=== PATIENT | female | born 1960 | race Caucasian/White ===

== ENCOUNTER 2024-07-04 16:14 | Emergency (ER) | payer BC ==
[~2024-07-04] VITALS: Ht 165.1 cm; Wt 73.3 kg
[~2024-07-04 16:14] MED LIST: ALBU8HFA PO; CALC-212 PO; GLUC100017 PO; MULT-620 PO; OMEG1CAP2 PO
--- NOTE | 2024-07-04 16:30 | ELECTROCARDIOGRAPH REPORT ---
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 Renita Hednerson Measurements Intervals [place] Rate: 69 P: 15 [place]: 170 QRS: 2 QRSD: 108 T: -7 QT: 405 QTc: 434 Interpretive Statements Sinus rhythm Probable left atrial enlargement Abnormal R-wave progression, early transition Borderline T abnormalities, diffuse leads Baseline wander in lead(s) I,II,aVR Electronically Signed On 07-04-2024 17:54:[address] Renita Henderson Please click the below link to view image of tracing.
[2024-07-04 16:57] LABS: BASOPHILS # (AUTO) 0.1 X10'3 (0-0.2); BASOPHILS % (AUTO) 1.2 % (0-1); EOSINOPHILS # (AUTO) 0.2 X10'3 (0-0.9); EOSINOPHILS % (AUTO) 3.1 % (0-6); HEMATOCRIT 36.1 % (35.0-45.0); HEMOGLOBIN 11.6 g/dl (12.0-16.0); LYMPHOCYTES # (AUTO) 1.6 X10'3 (1.1-4.8); MEAN CORPUSCULAR HEMOGLOBIN 22.9 PG (27.0-31.0); MEAN CORPUSCULAR VOLUME 71.6 FL (78-98); MEAN PLATELET VOLUME 9.2 FL (7.4-10.4); MONOCYTES # (AUTO) 0.5 X10'3 (0-0.9); MONOCYTES % (AUTO) 8.7 % (2-12); NEUTROPHILS # (AUTO) 3.1 X10'3 (1.8-7.7); PLATELET COUNT 182 X10'3 (140-440); RED BLOOD COUNT 5.04 X10'6 (4.20-5.60); RED CELL DISTRIBUTION WIDTH 17.1 % (11.5-14.5); WHITE BLOOD COUNT 5.4 X10'3 (4.5-11.0)
--- NOTE | 2024-07-04 17:01 | RADIOLOGY REPORT ---
CHEST RADIOGRAPH Indication: CP Technique: Single frontal view of the chest was obtained Comparison: None FINDINGS: Lines and Tubes: None Lungs: No focal consolidation. Pleura: No effusion. No pneumothorax. Cardiomediastinal contours: Unremarkable Bones: No acute osseous abnormality. IMPRESSION: 1. No acute cardiopulmonary disease.
[2024-07-04 17:16] LABS: ALANINE AMINOTRANSFERASE 44 U/L (12-78); ALBUMIN 4.3 G/DL (3.4-5.0); ALBUMIN/GLOBULIN RATIO 1.1 (1.1-1.5); ALKALINE PHOSPHATASE 79 IU/L (46-116); ANION GAP 6 (8-16); ASPARTATE AMINO TRANSFERASE 25 U/L (10-37); BILIRUBIN,TOTAL 0.4 MG/DL (0.1-1.0); BLOOD UREA NITROGEN 18 MG/DL (7-18); BUN/CREATININE RATIO 16.7 (10.0-20.0); CALCIUM 9.7 MG/DL (8.5-10.1); CHLORIDE 104 MMOL/L (99-107); CREATININE 1.08 MG/DL (0.40-0.90); GLUCOSE 120 MG/DL (70-104); POTASSIUM 3.6 MMOL/L (3.5-5.1); PRO BRAIN NATRIURETIC PEPTIDE < 30 PG/ML (0-125); SODIUM 143 MMOL/L (135-145); TOTAL CARBON DIOXIDE 32.9 MMOL/L (24-32); TOTAL PROTEIN 8.1 G/DL (6.4-8.2); eCRCL 49 ML/MIN; eGFR 51 ML/MIN
--- NOTE | 2024-07-04 19:59 | Physician Documentation ---
History of Present Illness ~ Chief Complaint: Hypertension Stated Complaint: HYPERTENSION Time Seen by MD: 19:15 Primary Medical Doctor: NONE HPI 61-year-old female reports a chief complaint of hypertension. Patient states she was feeling weird and states that she was crying due to this cold air bubble in my chest and states that she checked her blood pressure and it was high. Patient tried to go to primary care but came into the ER. Patient's current resting comfortably in no acute distress. Denies chest pain or jaw pain. Denies sweating. Denies feelings of anxiousness. No other complaints at this time Medication Reconciliation Allergies: Coded Allergies: No Known Allergies (Unverified , 02/18/14) Scheduled Calcium Cmb 2/Mag Cmb 12/Vitd3 (Calcium 500 Mg Tablet), 1 EACH PO DAILY, (Reported) Glucosamine Sulfate 2Kcl (Glucosamine), 1 TAB PO DAILY, (Reported) Multivitamins (Multivitamins), 1 TABLET PO DAILY, (Reported) [place]-3 Fatty Acids/Fish Oil (Fish Oil 1,000 mg Capsule), 1 CAP PO DAILY, (Reported) Scheduled PRN albuterol inhaler (Pro-Air Inhaler), 1-2 PUFFS PO PRN PRN for SOB or wheezing, (Reported) Past Medical History Past Medical History: Asthma, Hemorrhoids Other Past Surgical History: hemorrhoid removal Lives with: Alone Lives In: Home Physical Exam Vital Signs: Temperature: 98.6, Source: Oral, Heart Rate: 83, Respiratory Rate: 22, BP: 196/90, Pulse Oximetry: 100, Weight: 73.300 Oxygen Flow Rate: 0 Physical Exam General: Well developed, well nourished, no distress. HEENT: Atraumatic, normal conjunctiva, moist mucous membranes. Neck: Full range of motion, supple. Respiratory: Lungs clear, no respiratory distress. Chest: No accessory muscle use, nontender. Cardiovascular: Regular rate and rhythm. Gastrointestinal: Soft, nontender, nondistended. Bowel sounds present. Extremities: Normal range of motion, nontender, normal capillary refill, no deformity. Back: No midline tenderness, no CVA tenderness. Neurologic: Oriented x4. Distal gross motor and sensory intact all four extremities. Moves all 4 extremities spontaneously. Psychiatric: Normal mood and affect. Skin: Normal color, warm and dry. No edema, no ecchymosis Progress Results/Orders Results/Orders Vital Signs 07/04/24 07/04/24 16:24 19:05 Temp 98.6 98.6 Pulse 68 83 Resp 16 22 B/P (MAP) 164/98 196/90 (125) Pulse Ox 98 100 O2 Flow Rate 0 0 Laboratory Tests Test 07/04/24 16:41 White Blood Count 5.4 Red Blood Count 5.04 Hemoglobin 11.6 L Hematocrit 36.1 Mean Corpuscular Volume 71.6 L Mean Corpuscular Hemoglobin 22.9 L Mean Corpuscular Hemoglobin Concent 32.0 L Red Cell Distribution Width 17.1 H Platelet Count 182 Mean Platelet Volume 9.2 Neutrophils (%) (Auto) 57.0 Lymphocytes (%) (Auto) 30.0 Monocytes (%) (Auto) 8.7 Eosinophils (%) (Auto) 3.1 Basophils (%) (Auto) 1.2 H Neutrophils # (Auto) 3.1 Lymphocytes # (Auto) 1.6 Monocytes # (Auto) 0.5 Eosinophils # (Auto) 0.2 Basophils # (Auto) 0.1 CBC Comment Sodium Level 143 Potassium Level 3.6 Chloride Level 104 Carbon Dioxide Level 32.9 H Anion Gap 6 L Blood Urea Nitrogen 18 Creatinine 1.08 H Estimated GFR/1.73 m2 51 BUN/Creatinine Ratio 16.7 Glucose Level 120 H Calcium Level 9.7 Total Bilirubin 0.4 Aspartate Amino Transf (AST/SGOT) 25 Alanine Aminotransferase (ALT/SGPT) 44 Alkaline Phosphatase 79 Troponin I High Sensitivity 4 Pro-B-Type Natriuretic Peptide < 30 Total Protein 8.1 Albumin 4.3 Globulin 3.8 Albumin/Globulin Ratio 1.1 Chemistry Comments Heart Score: Heart Score Response (Comments) Value History Slightly Suspicious 0 EKG Normal 0 Age 45-64 1 Risk Factors No known risk factors 0 Troponin Normal limit 0 Total 1 Medical Decision Making Additional info obtained from: old records Findings After detailed discussion and joint medical decision-making, diagnostic and imaging results were discussed with the patient. At this time patient has a heart score of one and patient will not be admitted for chest pain or angina. Patient has no evidence of ACS based on elevated troponins a BNP or cardiac abnormalities on EKG. Patient's symptoms appear to be atypical chest pain and patient be discharged with instructions to follow up primary care. ER precautions were given. Patient is stable upon discharge. All patient questions answered to satisfaction Differential Dx:Considerations: Include CHF, Include HTN, essential, Include HTN, accelerated, Include HTN, malignant, Include other (ACS) Departure Disposition: HOME / SELF CARE / HOMELESS Impression: Primary Impression: Benign hypertension Condition: Stable Discharge Instructions: Hypertension, Adult Referrals: NO PRIMARY CARE PROVIDER (PCP) Education Educated: Patient Educated regarding: diagnosis, treatment Signature Scribe Signature: None used Attestation: Scribed for Anurag [place] by Anurag PENALOZA . 07/04/24 19:58 ANURAG EAGLE July 04, 2024 19:58
[2024-07-04 20:09] VITALS: BP 162/61; PULSE 64; RESP 18; TEMP 98.7; O2SAT 99
== END 2024-07-04 20:13 | disposition home or self-care (01) ==
LOC: ER 16:15
DX: I10 Essential (primary) hypertension (principal); J45.909 Unspecified asthma, uncomplicated; Z79.899 Other long term (current) drug therapy
CPT/HCPCS: 36415; 71045; 80053; 83880; 84484; 85025; 93005; 99285; A4615